=== PATIENT | male | born 1960 | race Hispanic/Latino ===

== ENCOUNTER 2023-01-13 14:21 | Emergency (ER) | payer MEDICARE ==
[~2023-01-13] VITALS: Ht 152.4 cm; Wt 54.4 kg
[2023-01-13] MEDS ORDERED: ASPIRIN 325MG EC TAB PO ONE (15:30)
[2023-01-13] MEDS ORDERED: LORAZEPAM 1 MG TABLET PO ONE ×2 (15:30→16:00)
[2023-01-13] MEDS ORDERED: LORAZEPAM 1 MG TABLET ONE (15:32)
[2023-01-13] MEDS ORDERED: ASPIRIN 325MG TAB ONE (15:32)
[2023-01-13 15:39] LABS: BASOPHILS % (AUTO) 0.4 % (0.0-5.0); EOSINOPHILS % (AUTO) 0.4 % (0.0-8.0); HEMATOCRIT 42.9 % (42-54); LYMPHOCYTES % (AUTO) 18.8 % (21.0-51.0); MEAN CORPUSCULAR HGB CONC 33.8 g/dL (32.0-36.0); MEAN CORPUSCULAR VOLUME 91.7 fL (79-99); MONOCYTES % (AUTO) 14.1 % (3.0-13.0); NEUTROPHILS % (AUTO) 66.1 % (40.0-77.0); PLATELET COUNT (AUTO) 200 K/uL (130-400); RED BLOOD CELL COUNT(AUTO) 4.68 MIL/uL (4.50-6.20); RED CELL DISTRIBUTION WIDTH 11.8 % (11.0-15.5); WHITE BLOOD COUNT (AUTO) 5.3 K/uL (4.8-10.8)
[2023-01-13 16:01] LABS: ALBUMIN 4.4 g/dL (3.5-5.0); CREATININE 0.8 mg/dL (0.5-1.5); POTASSIUM 3.6 mmol/L (3.5-5.1)
[2023-01-13 16:27] LABS: APPEARANCE,URINE CLEAR (CLEAR); BILIRUBIN,URINE NEGATIVE (NEGATIVE); COLOR,URINE LIGHT-YELLOW (YELLOW); GLUCOSE, URINE (UA) NEGATIVE (NEGATIVE); KETONES,URINE NEGATIVE (NEGATIVE); LEUKOCYTE ESTERASE ,URINE NEGATIVE Leu/uL (NEGATIVE); NITRATE,URINE NEGATIVE (NEGATIVE); OCCULT BLOOD,URINE NEGATIVE (NEGATIVE); PROTEIN,URINE NEGATIVE (NEGATIVE); UROBILINOGEN,URINE 0.2 mg/dL (0.2-1.0)
[2023-01-13] MEDS ORDERED: HYDRALAZINE 20MG/ML VIAL IV ONE (16:30)
[2023-01-13] MEDS ORDERED: 0.9% NACL 500ML IV.SOLN 500 ML IV ONE (16:30)
[2023-01-13 17:28] VITALS: BP 131/77
== END 2023-01-13 17:57 | disposition home or self-care (01) ==
LOC: EDH 14:21
DX: R07.89 Other chest pain (principal); E78.00 Pure hypercholesterolemia, unspecified; I10 Essential (primary) hypertension; Z79.899 Other long term (current) drug therapy
CPT/HCPCS: 99284; 96374; 84484 ×2; 80053; 85025; 81003; 36415; 93005 ×2; J7040; J0360